=== PATIENT | female | born 1995 | race Caucasian/White ===

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

== ENCOUNTER 2017-09-30 18:47 | Emergency (ER) | payer BC ==
--- NOTE | 2017-09-30 19:24 | EDPHY ---
HPI/HX/ROS/PE/MDM Narrative: CHIEF COMPLAINT: Facial rash, lightheadedness HPI: This patient is 21 year old female. Three day history of possible staph infection near her right eyebrow. She was evaluated yesterday for similar symptoms and prescribed Keflex and Bactrim as well as topical Bactroban. The patient feels her symptoms have worsened since then. She complains of blurred vision in her right eye and a swollen lymph node on the right. The patient is concerned as she has history of MRSA infection which required I&D and left subsequent scarring. She has felt lightheaded throughout the day and needed to leave work due to this. Additionally, the patient has has arthralgias and easy bruising over the last two ears. She is concerned regarding Lyme's disease or a rheumatologic disorder and requests blood testing for this. She states today her joints seem swollen and her right arm feels mildly numb. She denies fever, chest pain, shortness of breath, or other associated symptoms. REVIEW OF SYSTEMS: Aside from elements discussed in the HPI, a comprehensive 10-point review of systems was reviewed and is negative. PMH: ADHD. History of MRSA infection. SOCIAL HISTORY: Single. Originally from [place]. Student at [employer] [facility] [employer]. PHYSICAL EXAM: General:Patient is alert, anxious-appearing. ENT:Eyes are normal to inspection. Raised hardened area at the medial portion of the right elbow with mild surrounding erythema. ENT inspection otherwise normal. Neck: Normal inspection. Full range of motion. Respiratory:No respiratory distress. Breath sounds normal bilaterally. Cardiovascular: Regular rate and rhythm. Strong peripheral pulses. Normal cap refill. Back: Normal to inspection. No tenderness to palpation. Skin: See ENT findings. Normal color. Warm and dry. Extremities: Normal appearance. Full range of motion. Neuro: Oriented x3. Normal motor function. Normal sensory function. ED Course: 21 y/o female presents with concerns regarding cellulitis of her right eyebrow as well as chronic arthralgias. I explained that we do not test for Lyme's disease or rheumatologic disorders in the emergency department. Patient became tearful during my discussion and states she is very anxious. She would like to check basic blood work to rule out any abnormalities. Plan for labs including CBC, chemistries, BHCG. 20:30 Laboratory studies are all within normal limits. 20:45 Reassessed patient. Discussed laboratory studies. I recommend she continue her antibiotics as prescribed. I have provided a referral to rheumatology for further evaluation. Plan to discharge home in good condition. Follow up and return precautions discussed. She is comfortable with this plan. MDM: This patient presents with EXTREME anxiety regarding a number of symptoms that have been present for what sounds like 1-2 years. I see no signs of active infection, and doubt she actually even has an active abscess on her eyebrow. It is reasonable that she might be suffering from an auto-immune condition like RA, but I explained to her that this is not a workup that occurs in an ED, and have given her appropriate referral to Rheumatology and a PCP. I see no signs of sepsis, abscess, bacteremia, or cardiac issue. - Data Points Laboratory Results: Laboratory Results 09/30/17 19:42 09/30/17 19:42 09/30/17 09/30/17 09/30/17 19:42 19:42 19:42 WBC 5.39 10^3/uL 10^3/uL (3.80-9.50) RBC 4.67 10^6/uL 10^6/uL (4.18-5.33) Hgb 13.2 g/dL g/dL (12.6-16.3) Hct 39.6 % % (38.0-47.0) MCV 84.8 fL fL (81.5-99.8) MCH 28.3 pg pg (27.9-34.1) MCHC 33.3 g/dL g/dL (32.4-36.7) RDW 13.5 % % (11.5-15.2) Plt Count 303 10^3/uL 10^3/uL (150-400) MPV 9.5 fL fL (8.7-11.7) Neut % (Auto) 52.8 % % (39.3-74.2) Lymph % (Auto) 33.8 % % (15.0-45.0) [place] % (Auto) 10.9 % % (4.5-13.0) Eos % (Auto) 1.7 % % (0.6-7.6) Baso % (Auto) 0.6 % % (0.3-1.7) Nucleat RBC Rel Count 0.0 % % (0.0-0.2) Absolute Neuts (auto) 2.85 10^3/uL 10^3/uL (1.70-6.50) Absolute Lymphs (auto) 1.82 10^3/uL 10^3/uL (1.00-3.00) Absolute Monos (auto) 0.59 10^3/uL 10^3/uL (0.30-0.80) Absolute Eos (auto) 0.09 10^3/uL 10^3/uL (0.03-0.40) Absolute Basos (auto) 0.03 10^3/uL 10^3/uL (0.02-0.10) Absolute Nucleated RBC 0.00 10^3/uL 10^3/uL (0-0.01) Immature Gran % 0.2 % % (0.0-1.1) Immature Gran # 0.01 10^3/uL 10^3/uL (0.00-0.10) Sodium 139 mEq/L mEq/L (135-145) Potassium 4.0 mEq/L mEq/L (3.3-5.0) Chloride 103 mEq/L mEq/L (97-110) Carbon Dioxide 26 mEq/l mEq/l (22-31) Anion Gap 10 mEq/L mEq/L (8-16) BUN 11 mg/dL mg/dL (7-23) Creatinine 0.6 mg/dL mg/dL (0.6-1.0) Estimated GFR > 60 Glucose 98 mg/dL mg/dL (70-100) Calcium 10.0 mg/dL mg/dL (8.5-10.4) Beta HCG, Qual NEGATIVE General Time Seen by Provider: 09/30/17 19:18 Initial Vital Signs: Initial Vital Signs Temperature (C) 36.6 C 09/30/17 18:53 Heart Rate 87 09/30/17 18:53 Respiratory Rate 20 09/30/17 18:53 Blood Pressure 122/78 H 09/30/17 18:53 O2 Sat (%) 99 09/30/17 18:53 O2 Delivery Mode Room Air Allergies/Adverse Reactions: No Known Allergies Allergy (Verified 09/30/17 18:53) Home Medications: Medication Instructions Recorded Cephalexin 12/09/16 Mupirocin 12/09/16 Sulfamethox/Tmp 800/160 mg 1 tab PO BID #12 tab 12/09/16 [Bactrim Ds] Cephalexin [Keflex (*)] 500 mg PO TID #21 cap 09/29/17 Mupirocin 2% [Bactroban 2%] 1 gm TP BID #15 g 09/29/17 Sulfamethox/Tmp 800/160 mg 1 tab PO BID #14 tab 09/29/17 [Bactrim Ds] Departure - Departure Disposition: Home, Routine, Self-Care Clinical Impression: Arthralgia, Cellulitis of eyebrow Condition: Good Instructions: Cellulitis (ED), Arthralgia (ED) Additional Instructions: 1. Follow up with your primary care provider. Continue taking your antibiotics as prescribed. 2. Follow up with rheumatology for further concerns regarding your joint pain. 3. Return to the emergency department for fever, chest pain, shortness of breath , or other worsening of condition. Referrals: Nii Campos MD [[facility] [place] [facility] Primary Care Provider] - As per Instructions Report Scribed for: Robbie Rangel Report Scribed by: Conchis Ferrell Date of Report: 09/30/17 Time of Report: 19:24 Physician Review and Approval Statement: Portions of this note were transcribed by an ED scribe. I personally performed the history, physical exam, and medical decision making; and confirm the accuracy of the information in the transcribed note.
[2017-09-30 20:03] LABS: PLATELET COUNT 303 10^3/uL (150-400)
[2017-09-30] MEDS ORDERED: SULFAMETHOX/TMP 800/160 MG 1 TAB PO ONE (20:51)
[2017-09-30] MEDS ORDERED: CEPHALEXIN 500 MG CAP PO ONE (20:51)
[2017-09-30 21:05] VITALS: BP 111/67
== END 2017-09-30 21:05 | disposition home or self-care (01) ==
DX: L03.211 Cellulitis of face (principal); M25.50 Pain in unspecified joint

== ENCOUNTER 2017-11-09 01:14 | Emergency (ER) | payer BC ==
[2017-11-09 01:28] VITALS: BP 127/80
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
== END 2017-11-09 01:50 | disposition home or self-care (01) ==
LOC: EDUNIT#
DX: S00.83XA Contusion of other part of head, initial encounter (principal); R04.0 Epistaxis; F17.200 Nicotine dependence, unspecified, uncomplicated